=== PATIENT | female | born 1985 | race Hispanic/Latino ===

== ENCOUNTER 2024-02-11 20:36 | Inpatient (IN) | payer BC ==
[2024-02-11 23:12] LABS: #Basophils 0.04 10x3/uL (0.0-0.2); #Monocytes 0.39 10x3/uL (0.0-1.1); #Neutrophils 2.75 10x3/uL (1.5-8.4); %Basophils 0.8 % (0.0-2.0); %Eosinophils 5.7 % (0.0-6.0); %Monocytes 7.4 % (0.0-10.0); %Neutrophils 51.7 % (40.0-75.0); Hematocrit 34.8 % (34.9-44.5); Hemoglobin 12.2 g/dL (12.0-15.5); Mean Corpuscular HGB CONC 35.1 g/dL (32.0-36.0); Mean Corpuscular Hemoglobin 31.2 pg (27.0-33.0); Mean Platelet Volume 11.4 fl (7.4-10.4); Platelet Count 209 10x3/uL (150-450); RBC Distribution Width 11.9 % (11.5-14.5); Red Blood Cell (RBC) Count 3.91 10x6/uL (3.90-5.03); White Blood Cell (WBC) Count 5.3 10x3/uL (3.5-10.5)
[2024-02-11 23:19] LABS: BHCG - Serum Negative (NEGATIVE); Pregs Control Background? CLEAR/WHITE (CLR/WHITE); Pregs Control Bar Appear? YES (CONTROL BAR)
[2024-02-11 23:26] LABS: ALT (SGPT) 15 U/L (8-55); AST (SGOT) 19 U/L (5-34); Albumin 4.1 g/dL (3.5-5.0); Alkaline Phosphatase 42 U/L (40-110); Anion Gap 12 mmol/L (10-20); BUN (Urea Nitrogen) 9 mg/dL (7.0-18.7); Bilirubin, Total 0.4 mg/dL (0.2-1.2); Calc. Creatinine Clearance 0 mL/min (70-130); Calcium 9.4 mg/dL (7.8-10.44); Carbon Dioxide 25 mmol/L (22-29); Chloride 105 mmol/L (98-107); Estimated GFR 111; Globulin 3.2 g/dL (2.4-3.5); Glucose 83 mg/dL (70-105); Potassium 3.4 mmol/L (3.5-5.1); Protein, Total 7.3 g/dL (6.0-8.3); Sodium 139 mmol/L (136-145)
[2024-02-12] MEDS ORDERED: Senokot S 8.6-50 MG TAB PO PRN (01:44)
[2024-02-12] MEDS ORDERED: Calcium Carbonate 500 MG ChewTAB PO PRN (01:44)
[2024-02-12 01:49] LABS: Bilirubin Neg (Negative); Blood, Urine Negative (Negative); Clarity Clear (Clear); Glucose, Urine (Dipstick) Normal (Negative); Ketone, Urine Negative (Negative); Leukocyte 25 (Negative); Nitrite Negative (Negative); Protein, Urine (Dipstick) Negative (Neg-Trace); Urobilinogen Normal mg/dL (Less than 2)
[2024-02-12 02:03] LABS: Bacteria/HPF 1+ HPF (None Seen); CAUTI Indications for Culture Fever or rigors; RBC/HPF None Seen HPF (0-3); Squamous Epithelial 0-3 HPF (0-3); Urine Culture Reflex No No; WBC/HPF 0-3 HPF (0-3)
[2024-02-12] MEDS: Potassium Chloride 20 MEQ TAB PO SCH (03:33)
[2024-02-12 03:53] VITALS: BMI 20.2
[2024-02-12 05:14] LABS: Anion Gap 12 mmol/L (10-20); BUN (Urea Nitrogen) 8 mg/dL (7.0-18.7); CK (CPK) 66 U/L (29-168); Calc. Creatinine Clearance 86 mL/min (70-130); Carbon Dioxide 23 mmol/L (22-29); Chloride 106 mmol/L (98-107); Estimated GFR 115; Glucose 88 mg/dL (70-105); Potassium 4.1 mmol/L (3.5-5.1); Sodium 137 mmol/L (136-145)
[2024-02-12 05:34] LABS: Thyroid Stimulating Hormone 2.559 uIU/mL (0.35-4.94)
[2024-02-12] MEDS ORDERED: Magnevist 469MG/ML 20 ML VIAL ONE ×2 (10:39→10:40)
[2024-02-12] MEDS: Diazepam 5 MG TAB PO PRN (12:19)
[2024-02-12] MEDS ORDERED: ALPRAZolam 0.25 MG TAB PO PRN (20:51)
[2024-02-12] MEDS: Enoxaparin 40 MG (0.4 mL) SYRINGE SC SCH (21:16)
[2024-02-13] MEDS ORDERED: Lidocaine 1% PF 5 ML VIAL ONE (10:19)
[2024-02-13 10:59] LABS: INR-International Normal Ratio 1.1; Prothrombin Time 11.8 sec (9.5-12.1)
[2024-02-13] MEDS: Acetaminophen 325 MG TAB PO PRN (13:21)
[2024-02-13] MEDS: Diazepam 5 MG TAB PO PRN (13:22)
[2024-02-13] MEDS: Ondansetron PF 4 MG/2 ML Vial IVP PRN (14:48)
[2024-02-13 16:33] VITALS: BP 102/68; TEMP 97.9
[2024-02-14 08:11] LABS: CSF, Protein 31.9 mg/dL (15-40)
[2024-02-14 11:33] LABS: Ref Lab Test Ordered MuSK Abs; Reference Lab Name LABCORP
[2024-02-14 13:42] LABS: CSF Source CSF; Tube # 4
[2024-02-14 13:43] LABS: Clarity Clear (Clear)
== END 2024-02-13 18:56 | disposition home or self-care (01) | DRG 60 ==
LOC: CSHERS 20:36 → CSHERHOLD 02-12 02:02 → CSHTELE 02-12 02:51 → OBSVTOIN 02-13 08:40
PROVIDERS: ADMIT Student in an Organized Health Care Education/Training Program; ATTEND Family Medicine
PROC: 009U3ZX Drainage of Spinal Canal, Percutaneous Approach, Diagnostic (ICD-10-PCS; principal; 2024-02-13)
PROC: B01B1ZZ Fluoroscopy of Spinal Cord using Low Osmolar Contrast (ICD-10-PCS; 2024-02-13)
DX: G35 Multiple sclerosis (principal); R20.0 Anesthesia of skin; M62.81 Muscle weakness (generalized); E87.6 Hypokalemia; R29.810 Facial weakness; K90.0 Celiac disease; Z79.899 Other long term (current) drug therapy; Z88.8 Allergy status to other drugs, medicaments and biological substances
CPT/HCPCS: 36415; 62270; 70450; 70553; 72156; 72158; 80048; 80053; 81001; 82040; 82042; 82550; 82607; 82784; 82945; 83519; 83735; 83916; 84157; 84443; 84703; 85025; 85610; 86140; 89051; 93005; A9579; G0378; J2405